=== PATIENT | male | born 1990 | race African-American/Black ===

== ENCOUNTER 2017-01-02 16:50 | Emergency (ER) | payer OTHER ==
[~2017-01-02] VITALS: Ht 180.3 cm; Wt 72.9 kg
[2017-01-02 17:07] VITALS: TEMP 37.8; Ht 180.3 cm; Wt 72.9 kg
--- NOTE | 2017-01-02 17:17 | EMERGENCY ROOM VISIT NOTE ---
History Report prepared by Ramos: Thuy Foreman Under the Supervision of: Dr. Spenser Garcia M.D. 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 The patient was outside playing basketball earlier today. The patient jumped up for the ball and when he landed his right knee popped. The correctional officers did not notice any deformity, but the patient was having a lot of pain. Afterwards, he had two seizures which was witnessed by the nurses at [facility]. He was not given any medications. His seizures lasted for around [address] here, he had another seizure which was witness by the correctional officers and EMS. They report that his eyes rolled back and he was shaking. He has a history of epilepsy, but has not been on Tegretol or other seizure medication for several years. His last seizure was in 2007. He denies any tongue pain, incontinence, or abdominal pain. 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 Pt denies tongue bite, incontinence. Review of Systems All systems have been listed, reviewed, and are negative other than those previously mentioned. Please see Additional Medical History Sheet. Past Medical & Surgical Medical Problems: (1) Seizure Surgical Problems: (1) S/P appendectomy Family History Hypertension Kidney disease Kidney stones Seizures Social History Housing Status: other (senior care) Current/Historical Medications No Active Prescriptions or Reported Meds Allergies Coded Allergies: Ketorolac Tromethamine (Verified Allergy, Severe, ANAPHYLAXIS, 01/02/17) NSAIDs (Verified Allergy, Severe, ANAPHYLAXIS, 01/02/17) Physical Exam Vital Signs Date Time Temp Pulse Resp B/P (MAP) Pulse Ox O2 Delivery O2 Flow Rate FiO2 01/02/17 21:41 53 18 117/69 100 01/02/17 19:22 75 18 122/79 100 Room Air 01/02/17 17:30 100 Room Air 01/02/17 17:09 67 01/02/17 17:07 37.8 70 18 107/61 100 Room Air Physical Exam GENERAL: Patient awake, alert, oriented x 3. Patient follows commands. Patient does not appear toxic. Patient is adequately hydrated and well- nourished. SKIN: No erythema, pallor, cyanosis or rash HEENT: Normal head, pupils equal, reactive to light and accommodation. No signs of abrasion or laceration to tongue. Oral cavity and posterior pharynx appear normal. Neck: Without adenopathy, no neck vein distention. LUNGS: Clear to auscultation. No wheezes, no rales, no rhonchi. HEART: No murmurs. No gallops. No rubs ABDOMEN: Soft, nontender. No masses, no rebound, no hepatomegaly or splenomegaly. EXTREMITIES: Right knee is moderately swollen especially to the medial side, very painful to light touch, patient is unwilling to flex knee from current position of 180 degrees, good sensation distally, motor sensation and circulatory function intact distally. NEUROLOGIC: Cranial nerves II-XII within normal limits. No gross motor sensory function deficits. Medical Decision & Procedures ER Provider Diagnostic Interpretation: X ray results are stated below per my interpretation and the radiologist's interpretation. RIGHT KNEE 2 VIEWS CLINICAL HISTORY: Right knee pain and swelling. Injury. FINDINGS: AP and crosstable lateral views of the right knee are obtained. No prior studies are available for comparison at the time of dictation. The skeletal structures are well mineralized. No fracture is seen. The joint spaces are preserved. A small joint effusion is noted. Prepatellar soft tissue swelling is observed. IMPRESSION: Prepatellar soft tissue swelling and joint effusion. No fracture is seen. Electronically signed by: Steven Vides M.D. 01/02/2017 6:07 PM Dictated Date/Time: 01/02/2017 6:06 PM Laboratory Results 01/02/17 17:34 Red Blood Count 4.23, Mean Corpuscular Volume 96.5, Mean Corpuscular Hemoglobin 33.3, Mean Corpuscular Hemoglobin Concent 34.6, Mean Platelet Volume 11.4, Neutrophils (%) (Auto) 70.6, Lymphocytes (%) (Auto) 17.5, Monocytes (%) (Auto) 10.1, Eosinophils (%) (Auto) 1.1, Basophils (%) (Auto) 0.5, Neutrophils # (Auto ) 7.16, Lymphocytes # (Auto) 1.78, Monocytes # (Auto) 1.03, Eosinophils # (Auto ) 0.11, Basophils # (Auto) 0.05 01/02/17 17:34 Test 01/02/17 17:34 01/02/17 20:36 White Blood Count 10.15 K/uL (4.8-10.8) Red Blood Count 4.23 M/uL (4.7-6.1) Hemoglobin 14.1 g/dL (14.0-18.0) Hematocrit 40.8 % (42-52) Mean Corpuscular Volume 96.5 fL (80-100) Mean Corpuscular Hemoglobin 33.3 pg (25-34) Mean Corpuscular Hemoglobin Concent 34.6 g/dl (32-36) Platelet Count 215 K/uL (130-400) Mean Platelet Volume 11.4 fL (7.4-10.4) Neutrophils (%) (Auto) 70.6 % Lymphocytes (%) (Auto) 17.5 % Monocytes (%) (Auto) 10.1 % Eosinophils (%) (Auto) 1.1 % Basophils (%) (Auto) 0.5 % Neutrophils # (Auto) 7.16 K/uL (1.4-6.5) Lymphocytes # (Auto) 1.78 K/uL (1.2-3.4) Monocytes # (Auto) 1.03 K/uL (0.11-0.59) Eosinophils # (Auto) 0.11 K/uL (0-0.5) Basophils # (Auto) 0.05 K/uL (0-0.2) RDW Standard Deviation 42.7 fL (36.4-46.3) RDW Coefficient of Variation 12.1 % (11.5-14.5) Immature Granulocyte % (Auto) 0.2 % Immature Granulocyte # (Auto) 0.02 K/uL (0.00-0.02) Anion Gap 7.0 mmol/L (3-11) Est Creatinine Clear Calc Drug Dose 88.8 ml/min Estimated GFR () 87.3 Estimated GFR (Non- 75.3 BUN/Creatinine Ratio 19.0 (10-20) Calcium Level 9.3 mg/dl (8.5-10.1) Total Bilirubin 0.4 mg/dl (0.2-1) Aspartate Amino Transf (AST/SGOT) 24 U/L (15-37) Alanine Aminotransferase (ALT/SGPT) 32 U/L (12-78) Alkaline Phosphatase 49 U/L (45-117) Troponin I 0.023 ng/ml (0-0.045) Total Protein 7.6 gm/dl (6.4-8.2) Albumin 4.3 gm/dl (3.4-5.0) Globulin 3.3 gm/dl (2.5-4.0) Albumin/Globulin Ratio 1.3 (0.9-2) Urine Color DK YELLOW Urine Appearance CLEAR (CLEAR) Urine pH 6.0 (4.5-7.5) Urine Specific [place] 1.035 (1.000-1.030) Urine Protein NEG (NEG) Urine Glucose (UA) NEG (NEG) Urine Ketones TRACE (NEG) Urine Occult Blood NEG (NEG) Urine Nitrite NEG (NEG) Urine Bilirubin NEG (NEG) Urine Urobilinogen NEG (NEG) Urine Leukocyte Esterase NEG (NEG) Laboratory results as stated above per my review. Medications Administered Medications (Trade) Dose Ordered Sig/Sanchez Route Start Time Stop Time Status Last Admin Dose Admin Sodium Chloride 2,000 ml @ 1,000 mls/hr Q2H ONCE IV 01/02/17 18:30 01/02/17 20:29 DC 01/02/17 19:22 1,000 MLS/HR Acetaminophen/ Hydrocodone Bitart ([place] 5/325 Tab) 2 tab ONE ONCE PO 01/02/17 19:30 01/02/17 19:31 DC 01/02/17 19:56 2 TAB ECG Indication: syncope Rate (beats per minute): 56 Rhythm: sinus bradycardia Findings: no acute ischemic change, no ectopy, other (early repolarization) ED Course 1700: Past medical records reviewed. The patient was evaluated in room B6. A complete history and physical examination was performed. 0: NSS 2000 ml @ 1000 mls/hr IV. 1919: I reevaluated the patient. He is still having pain. 1929: [place] 5/325 Tab 2 tab PO. 2043: Urine dip was negative for blood. 2113: Upon reevaluation, the patient appeared to have improvement of his symptoms. I discussed today's findings with him. He verbalized agreement of the treatment plan. He was discharged to senior care. Medical Decision Nurses notes reviewed. Medical history sheet reviewed. Differential diagnosis includes but is not limited to: fracture dislocation right knee, seizure disorder, metabolic disorder, heat exhaustion. The patient was playing basketball outside in a 85 high-humidity weather. He apparently twisted his leg and developed severe pain followed by a seizure. Patient had 2 more seizures prior to entry. The patient has a prior seizure history at age of 13. The patient is currently on no medications. A full workup ensued. The patient has some swelling of his right knee with tenderness on the medial aspect. The patient does not have joint laxity. Anterior posterior drawers are negative. Multiple labs were obtained. Please see above. The patient's urine is very concentrated consistent with dehydration. The patient received 2 L of IV fluid while here. The patient does not appear to be infected. I believe that his seizure threshold was lowered due to the extreme heat, exertion, dehydration and sudden onset of pain. The patient had no seizures while here in the ED. The knee was aced and a knee immobilizer was applied. The patient will require follow-up to make sure that it is healing. I do not believe the patient requires seizure medications this time unless he has more seizures. The patient is currently in senior care therefore he cannot drive but that needs to be enforced if he is released from senior care in the near future. Medication Reconciliation: I attest that I have personally reviewed the patient' s current medication list. Blood pressure Screening: Patient was found to have normal blood pressure on screening and does not require follow up. Impression Primary Impression: Seizure Additional Impressions: Knee sprain Dehydration Heat exposure Scribe Attestation The scribe's documentation has been prepared under my direction and personally reviewed by me in its entirety. I confirm that the note above accurately reflects all work, treatment, procedures, and medical decision making performed by me. Departure Information Dispostion Home / Self-Care Prescriptions No Active Prescriptions or Reported Meds Referrals No Doctor, Assigned (PCP) Patient Instructions My [facility] Additional Instructions Follow-up with the senior care physician within the next 3 days concerning her seizure and your knee injury. Leave the Denis wrap and knee immobilizer on at all times when you are up for the next 2 weeks. You should be observed in the [facility] for at least 48 hours. Problem Qualifiers
[2017-01-02 17:30] VITALS: O2SAT 100
[2017-01-02 17:44] LABS: BASO % 0.5 %; BASO ABS # 0.05 K/uL (0-0.2); COMPLETE YES; EOS % 1.1 %; HEMATOCRIT 40.8 % (42-52); IG% 0.2 %; LYMPH % 17.5 %; LYMPH ABS # 1.78 K/uL (1.2-3.4); MEAN CELL VOLUME 96.5 fL (80-100); MEAN CORPUSCULAR HEMOGLOBIN 33.3 pg (25-34); MEAN CORPUSCULAR HGB CONC 34.6 g/dl (32-36); MEAN PLATELET VOLUME 11.4 fL (7.4-10.4); MONO % 10.1 %; NEUT % 70.6 %; PLATELET COUNT 215 K/uL (130-400); RED BLOOD COUNT 4.23 M/uL (4.7-6.1); WHITE BLOOD COUNT 10.15 K/uL (4.8-10.8)
[2017-01-02 18:01] LABS: CALCIUM 9.3 mg/dl (8.5-10.1); CREATININE 1.3 mg/dl (0.60-1.40); POTASSIUM 3.7 mmol/L (3.5-5.1)
[2017-01-02 18:06] LABS: ALB/GLOB RATIO 1.3 (0.9-2)
--- NOTE | 2017-01-02 18:08 | DIAGNOSTIC IMAGING REPORT ---
RIGHT KNEE 2 VIEWS CLINICAL HISTORY: Right knee pain and swelling. Injury. FINDINGS: AP and crosstable lateral views of the right knee are obtained. No prior studies are available for comparison at the time of dictation. The skeletal structures are well mineralized. No fracture is seen. The joint spaces are preserved. A small joint effusion is noted. Prepatellar soft tissue swelling is observed. IMPRESSION: Prepatellar soft tissue swelling and joint effusion. No fracture is seen. Electronically signed by: Steven Vides M.D. 01/02/2017 6:07 PM Dictated Date/Time: 01/02/2017 6:06 PM
[2017-01-02] MEDS ORDERED: SODIUM CHLORIDE 0.9% 1000ML 2,000 ML IV ONE (18:30)
[2017-01-02] MEDS ORDERED: HYDROCODONE/ACETAMOPHEN 5/325MG TAB PO ONE (19:30)
[2017-01-02 21:05] LABS: URINE APPEARANCE CLEAR (CLEAR); URINE BILIRUBIN NEG (NEG); URINE COLOR DK YELLOW; URINE NITRITE NEG (NEG); URINE SPECIFIC GRAVITY 1.035 (1.000-1.030); UROBILINOGEN NEG (NEG); ZZUR CULT IF INDIC CLEAN CATCH NO
[2017-01-02 21:06] LABS: MANUAL MICROSCOPIC REQUIRED? NO; REVIEW REQ? NO
[2017-01-02 21:41] VITALS: BP 117/69; PULSE 53; O2SAT 100
== END 2017-01-02 21:42 | disposition home or self-care (01) ==
LOC: C.EDB 16:53
DX: G40.909 Epilepsy, unspecified, not intractable, without status epilepticus (principal); S83.91XA Sprain of unspecified site of right knee, initial encounter; X58.XXXA Exposure to other specified factors, initial encounter; E86.0 Dehydration; X30.XXXA Exposure to excessive natural heat, initial encounter; R00.1 Bradycardia, unspecified; Z98.890 Other specified postprocedural states; Z88.8 Allergy status to other drugs, medicaments and biological substances; Z82.49 Family history of ischemic heart disease and other diseases of the circulatory system; Z84.1 Family history of disorders of kidney and ureter; Z82.0 Family history of epilepsy and other diseases of the nervous system

== ENCOUNTER 2017-01-05 21:56 | Emergency (ER) | payer OTHER ==
[~2017-01-05] VITALS: Ht 180.3 cm; Wt 70.0 kg
[2017-01-05 22:03] VITALS: TEMP 36.7; Ht 180.3 cm; Wt 70.0 kg
--- NOTE | 2017-01-05 22:12 | EMERGENCY ROOM VISIT NOTE ---
History Report prepared by Ramos: Daylin Suarez Under the Supervision of: Dr. Michael Martinez M.D. 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 The patient states that he has a history of epilepsy and hurt his leg last week after a seizure. He reports that he tripped over another inmate tonight and fell down a number of steps that he cannot recall. He states that after he fell he had a seizure that lasted 1 minute. He complains of shooting left upper neck pain that shoots into his fingertips when he moves his arm. The patient has right knee pain. He denies any right arm pain unless he is moving his shoulder or neck and abdominal pain. EMS placed the patient in a cervical collar. 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 Review of Systems See HPI for pertinent positives & negatives. A total of 10 systems reviewed and were otherwise negative. Past Medical & Surgical Medical Problems: (1) Seizure Surgical Problems: (1) S/P appendectomy Family History Hypertension Kidney disease Kidney stones Seizures Social History Smoking Status: Never Smoker Housing Status: other Current/Historical Medications Scheduled Carbamazepine (Tegretol), 200 MG PO BID Scheduled PRN Acetaminophen (Tylenol), 1,000 MG PO TID PRN for Pain Allergies Coded Allergies: Ketorolac Tromethamine (Verified Allergy, Severe, ANAPHYLAXIS, 01/02/17) NSAIDs (Verified Allergy, Severe, ANAPHYLAXIS, 01/02/17) Physical Exam Vital Signs Date Time Temp Pulse Resp B/P (MAP) Pulse Ox O2 Delivery O2 Flow Rate FiO2 01/05/17 23:44 50 16 106/64 98 01/05/17 23:07 62 01/05/17 23:02 52 16 107/64 98 Room Air 01/05/17 22:03 36.7 57 16 114/69 97 Room Air Physical Exam GENERAL: Patient is well appearing and in no acute distress. He is in a cervical collar HEENT: No acute trauma, normocephalic atraumatic, mucous membranes moist, no nasal congestion, no scleral icterus. NECK: No stridor, no adenopathy, no meningismus, trachea is midline. Tenderness to palpation to upper left posterior cervical spine. LUNGS: No dyspnea. Clear to auscultation and equal bilaterally. No wheeze, no rhonchi. HEART: Regular rate and rhythm. No murmurs, rubs, gallops appreciated. ABDOMEN: Soft, nontender, bowel sounds positive, no masses appreciated, no peritonitis. BACK: No midline tenderness, no CVA tenderness EXTREMITIES: No cyanosis, no edema. No pain with ROM of the shoulder or elbow, neurovascularly intact. Tender to palpation over the right patella. NEUROLOGIC: Alert and oriented, no acute motor or sensory deficits, no focal weakness, cranial nerves grossly intact. SKIN: No rash, no jaundice, no diaphoresis. Medical Decision & Procedures ER Provider Diagnostic Interpretation: Radiology results and stated below per my review and radiologist interpretation: CT OF THE HEAD WITHOUT CONTRAST FINDINGS: No acute intracranial hemorrhage, midline shift or mass effect is present. Ventricular system is unremarkable. Basilar cisterns are patent. There are no extra-axial collections. Love-white differentiation is maintained. There is no calvarial fracture. IMPRESSION: 1. No acute intracranial findings. 2. No calvarial fracture. Electronically signed by: Lev Jansen M.D. 01/05/2017 10:34 PM Dictated Date/Time: 01/05/2017 10:[address] OF THE CERVICAL SPINE WITHOUT CONTRAST FINDINGS: Alignment of the cervical spine is anatomic. There is no acute fracture. There is no prevertebral edema. The craniocervical junction is intact. IMPRESSION: No acute cervical spine fracture or subluxation. Electronically signed by: Lev Jansen M.D. 01/05/2017 10:37 PM Dictated Date/Time: 01/05/2017 10:34 PM Knee X-Ray: No fracture, no dislocation, no change from previous ED Course 2158: The patient was evaluated in room B2. A complete history and physical exam was performed. 2310: I removed the patients cervical collar. He has no midline tenderness and no neuro issues with the left arm. 2315: Reevaluated the patient. Discussed results and discharge instructions: He verbalized understanding and agreement. The patient is ready for discharge. Medical Decision Differential: Intracranial Injury, Cervical Injury, Intrathoracic/Abdominal Injury, Neurologic Injuries, Fractures/Dislocations, Lacerations, Tetanus Status , amongst other pathologies entertained. Blood pressure screening: Patient was found to have normal blood pressure on screening and does not require follow-up. Medication Reconciliation: I attest that I have personally reviewed the patient 's current medication list. 26 yr old male with long history of seizure disorder. Coming from [facility] under somewhat questionable what exactly happened but he apparently feel down a set of stairs with complaint of left neck pain, increase right knee pain and possible seizure after fall. Exam benign other than TTP. No thorax, back, abdomen injuries. Imaging unremarkable. Feeling better. Stating he didn't want to come to ED. Discharged back to [facility]. Impression Primary Impression: Fall Additional Impressions: Acute neck sprain Seizure Head injury, closed Scribe Attestation The scribe's documentation has been prepared under my direction and personally reviewed by me in its entirety. I confirm that the note above accurately reflects all work, treatment, procedures, and medical decision making performed by me. Departure Information Dispostion Home / Self-Care Referrals Rehan GOMEZ (PCP) Forms HOME CARE DOCUMENTATION FORM, IMPORTANT VISIT INFORMATION Patient Instructions ED Sprain Strain Neck, My [facility] Health Problem Qualifiers
--- NOTE | 2017-01-05 22:35 | DIAGNOSTIC IMAGING REPORT ---
CT OF THE HEAD WITHOUT CONTRAST CLINICAL HISTORY: fall down stairs, LOC, headache COMPARISON STUDY: No previous studies for comparison. TECHNIQUE: Helical axial images of the head were obtained without IV contrast. Automated exposure control was utilized for the study. FINDINGS: No acute intracranial hemorrhage, midline shift or mass effect is present. Ventricular system is unremarkable. Basilar cisterns are patent. There are no extra-axial collections. Love-white differentiation is maintained. There is no calvarial fracture. IMPRESSION: 1. No acute intracranial findings. 2. No calvarial fracture. Electronically signed by: Lev Jansen M.D. 01/05/2017 10:34 PM Dictated Date/Time: 01/05/2017 10:32 PM
--- NOTE | 2017-01-05 22:39 | DIAGNOSTIC IMAGING REPORT ---
CT OF THE CERVICAL SPINE WITHOUT CONTRAST CLINICAL HISTORY: fall, left upper neck pain s/p fall down stairs COMPARISON STUDY: No previous studies for comparison. TECHNIQUE: Helical axial images of the cervical spine were obtained without IV contrast. Sagittal and coronal reconstructions were viewed. FINDINGS: Alignment of the cervical spine is anatomic. There is no acute fracture. There is no prevertebral edema. The craniocervical junction is intact. IMPRESSION: No acute cervical spine fracture or subluxation. Electronically signed by: Lev Jansen M.D. 01/05/2017 10:37 PM Dictated Date/Time: 01/05/2017 10:34 PM
[2017-01-05] MEDS ORDERED: ACET-1256 PO (22:53)
[2017-01-05] MEDS ORDERED: CARB200T PO (22:53)
[2017-01-05 23:44] VITALS: BP 106/64; PULSE 50; O2SAT 98
--- NOTE | 2017-01-06 06:42 | DIAGNOSTIC IMAGING REPORT ---
Right KNEE 1 OR 2 VIEWS ROUTINE CLINICAL HISTORY: right knee pain s/p fall trauma. Pain. COMPARISON: None. DISCUSSION: The bones and joint spaces appear intact. There is no evidence of fracture, dislocation or bony disease. There is no evidence for soft tissue swelling. IMPRESSION: Negative study. Electronically signed by: Ron Park M.D. 01/06/2017 6:41 AM Dictated Date/Time: 01/06/2017 6:40 AM
== END 2017-01-05 23:46 | disposition home or self-care (01) ==
LOC: EDBD 21:56 → C.EDB 21:57
DX: S13.9XXA Sprain of joints and ligaments of unspecified parts of neck, initial encounter (principal); G40.909 Epilepsy, unspecified, not intractable, without status epilepticus; S09.90XA Unspecified injury of head, initial encounter; W03.XXXA Other fall on same level due to collision with another person, initial encounter; W10.9XXA Fall (on) (from) unspecified stairs and steps, initial encounter; Z90.89 Acquired absence of other organs; Z82.49 Family history of ischemic heart disease and other diseases of the circulatory system; Z84.1 Family history of disorders of kidney and ureter; Z82.0 Family history of epilepsy and other diseases of the nervous system